=== PATIENT | male | born 1955 | race Caucasian/White ===

== ENCOUNTER 2017-09-04 06:44 | Emergency (ER) | payer MEDICAID ==
[2017-09-04 07:55] VITALS: RESP 18; TEMP 97.5
--- NOTE | 2017-09-04 08:18 | ED PDOC ---
Arrival/HPI - General Chief Complaint: Allergic Reaction Time Seen by Provider: 09/04/17 08:05 Historian: Patient - History of Present Illness Narrative History of Present Illness (Text): 09/04/17 08:06 A 62 year old male, whose past medical history includes chronic allergies, presents to the emergency department complaining of a chronic allergic reaction. Patient notes a red itchy rash to face and arms with swelling around eyes. He reports he has experienced these symptoms multiple times before over the past 4 years. Patient recently treated for same symptoms and completed a course of prednisone. Patient denies any fever, chills, nausea, vomiting, abdominal pain, chest pain, shortness of breath, cough, difficulty swallowing or any other complaints. Past Medical History - Provider Review Nursing Documentation Reviewed: Yes - Infectious Disease Hx of Infectious Diseases: None - Cardiac Hx Cardiac Disorders: No - Psychiatric Hx Substance Use: No - Anesthesia Hx Anesthesia: No Family/Social History - Physician Review Nursing Documentation Reviewed: Yes Family/Social History: No Known Family HX Smoking Status: Current Some Days Smoker Hx Alcohol Use: Yes Frequency of alcohol use: Socially Hx Substance Use: No Allergies/Home Meds Allergies/Adverse Reactions: Allergies No Known Allergies Allergy (Verified 09/04/17 07:45) Review of Systems - Physician Review All systems were reviewed & negative as marked: Yes - Review of Systems Constitutional: absent: Fevers, Night Sweats Respiratory: absent: SOB, Cough Cardiovascular: absent: Chest Pain Gastrointestinal: absent: Abdominal Pain, Nausea, Vomiting Skin: Rash (to face and arms with swelling around eyes) Physical Exam - Physical Exam Narrative Physical Exam (Text): Constitutional: No acute distress. Head: Normocephalic. Atraumatic. Eyes: PERRL. ENT: Moist mucous membranes. No strider. Neck: Supple. Cardiovascular: Regular rate. Chest: No tenderness. Respiratory: Clear to auscultation bilaterally. No wheezing. GI: Soft. Nontender. Nondistended. Back: No CVA tenderness. Musculoskeletal: No tenderness or swelling of extremities. Skin: Areas of erythema and edema to face. Diffuse patches of dry skin. Neurologic: Alert, no focal deficit. Vital Signs Temp Pulse Resp BP Pulse Ox 09/04/17 07:55 97.5 F L 79 18 110/70 99 09/04/17 07:41 97.7 F 82 16 136/76 97 Medical Decision Making ED Course and Treatment: 09/04/17 08:06 Impression: A 62 year old male with redness and swelling to face. Hx if chronic allergies. Progress Notes: I have discussed the plan with the patient, who expresses understanding. Patient in agreement with plan to be discharged home. Patient is stable for discharge. Patient was instructed to follow up with towerman or return if symptoms worsen or new concerning symptoms arise. - Scribe Statement The provider has reviewed the documentation as recorded by the Scribe Yudy Gomez Provider Scribe Attestation: All medical record entries made by the Scribe were at my direction and personally dictated by me. I have reviewed the chart and agree that the record accurately reflects my personal performance of the history, physical exam, medical decision making, and the department course for this patient. I have also personally directed, reviewed, and agree with the discharge instructions and disposition. Disposition/Present on Arrival - Present on Arrival Any Indicators Present on Arrival: No History of DVT/PE: No History of Uncontrolled Diabetes: No Urinary Catheter: No History of Decub. Ulcer: No History Surgical Site Infection Following: None - Disposition Have Diagnosis and Disposition been Completed?: Yes Diagnosis: Allergic reaction Disposition: HOME/ ROUTINE Disposition Time: 08:15 Patient Plan: Discharge Condition: STABLE Discharge Instructions (ExitCare): Chronic Hives Prescriptions: DiphenhydrAMINE [Benadryl] 2 cap PO Q8 #25 cap Famotidine [Pepcid] 1 tab PO BID #14 tab Forms: [employer] (Mongolian)
[2017-09-04 08:41] VITALS: BP 136/76; PULSE 73; O2SAT 97
== END 2017-09-04 08:44 | disposition home or self-care (01) ==
LOC: MERGE 06:44 → ED 06:44
DX: T78.49XA Other allergy, initial encounter (principal); X58.XXXA Exposure to other specified factors, initial encounter